=== PATIENT | male | born 1960 | race Caucasian/White ===

== ENCOUNTER 2024-12-10 06:00 | Day surgery (SDC) | payer OTHER ==
[2024-12-03 07:50] VITALS: BP 143/77
[2024-12-03 08:05] LABS: URINE APPEARANCE Clear; URINE BILIRRUBIN Negative (NEGATIVE); URINE BLOOD Small; URINE COLOR Yellow; URINE GLUCOSE Negative (NEGATIVE); URINE KETONE Negative (NEGATIVE); URINE LEUKOCYTE Negative; URINE NITRATE Negative; URINE PROTEIN Negative (NEGATIVE); URINE UROBILINOGEN 0.2 E.U./dl
[2024-12-03 08:09] LABS: BASO % 0.8 % (0.1-1.2); EOS # 0.05 (0.04-0.54); EOS % 1.0 % (0.7-7.0); LYMPH # 1.38 (1.18-3.74); LYMPH % 26.3 % (19.3-53.1); MEAN PLATELET VOLUME 9.70 fl (9.4-12.4); MONO # 0.36 (0.24-0.82); MONO % 6.9 % (4.7-12.5); NEUT # 3.40 (1.56-6.13); NEUT % 64.8 % (34.0-71.1); RED CELL DISTRIBUTION WIDTH 12.1 % (11.6-14.4)
[2024-12-03 08:10] LABS: URINE BACTERIA 5.9 uL (0.0-1933); URINE RBC 6.7 uL (0.0-20.8); URINE WBC 3.2 uL (0.0-23.2)
[2024-12-03 08:25] LABS: COVID-19 AG NEGATIVE (NEGATIVE)
[2024-12-03 08:26] LABS: URINE CAST 0.00 uL (0.0-1.40); URINE EPITHELIAL CELLS 0.4 uL (0.0-38.8)
[2024-12-03 08:31] LABS: ALT/SGPT 37.0 U/L (12-78); AST/SGOT 31.0 U/L (15-37); BILIRUBIN TOTAL 0.48 mg/dL (0.3-1.2); BUN CREA RATIO 21.0 (7.0-25.0); CREATININE SERUM 1.07 mg/dL (0.70-1.30); GFR 69.58; GLOBULINA 3.7 G/DL (2.4-3.5); GLUCOSE FASTING 109.0 mg/dL (65-100); OSMOLALITY SERUM 285.0 MOSM/KG (275-295)
[2024-12-03 08:50] LABS: INR 1.04
[~2024-12-10] VITALS: Ht 172.7 cm; Wt 68.9 kg
[~2024-12-10 06:00] MED LIST: COZAAR50 MG PO; GABAPENTIN300 MG PO; PEPCID AC20 MG; SULINDAC200 MG PO; ZANTAC300 MG PO
[2024-12-10] MEDS ORDERED: EPINEPHRINE HCL/PF 1 MG/ML AMPUL ONE (06:59)
[2024-12-10] MEDS ORDERED: POVIDONE-IODINE SCRUB 118 ML BOTT TOP ONE ×2 (06:59→08:45)
[2024-12-10] MEDS ORDERED: CEFAZOLIN SODIUM 1,000 MG VIAL ONE (07:14)
[2024-12-10] MEDS ORDERED: POVIDONE-IODINE 118 ML BOTT TOP ONE (08:45)
[2024-12-10] MEDS ORDERED: MUPIROCIN 15 GM OINT..GM TUBE TOP ONE (08:45)
[2024-12-10] MEDS ORDERED: CEFAZOLIN SODIUM 1,000 MG VIAL IV ONE (08:45)
[2024-12-10] MEDS ORDERED: EPINEPHRINE HCL/PF 1 MG/ML AMPUL IR ONE (08:45)
[2024-12-10] MEDS ORDERED: LIDOCAINE HCL 1%/EPINEPHRINE 20ML VIAL IJ ONE (08:45)
[2024-12-10] MEDS ORDERED: CIPROFLOXACIN HCL 0.175 MG/DR DROPS OTIC ONE (09:00)
[2024-12-10] MEDS ORDERED: SUGAMMADEX SODIUM 200 MG/2 ML VIAL IV ONE ×2 (10:41→11:30)
[2024-12-10] MEDS ORDERED: KETOROLAC TROMETHAMINE 60 MG VIAL IM PRN (11:45)
[2024-12-10] MEDS ORDERED: PROMETHAZINE HCL 25 MG/ML AMPUL IM PRN (11:45)
[2024-12-10] MEDS ORDERED: ONDANSETRON HCL 2 MG/ML VIAL ONE (12:07)
[2024-12-10] MEDS ORDERED: PROMETHAZINE HCL 25 MG/ML AMPUL ONE (14:02)
[2024-12-10] MEDS ORDERED: METOCLOPRAMIDE HCL 5 MG/ML VIAL ONE (16:04)
[2024-12-10] MEDS ORDERED: DEXAMETHASONE SODIUM PHOSPHATE 4 MG/ML VIAL ONE (16:05)
== END 2024-12-10 17:30 | disposition home or self-care (01) ==
LOC: CIR.AMB 06:00
PROVIDERS: ATTEND Otolaryngology Otology & Neurotology
DX: H71.02 Cholesteatoma of attic, left ear (principal)